=== PATIENT | male | born 1990 | race Caucasian/White ===

== ENCOUNTER 2017-11-16 18:28 | Emergency (ER) | payer OTHER ==
[~2017-11-16] VITALS: Ht 170.2 cm; Wt 104.3 kg
[2017-11-16 18:33] VITALS: BP 137/72
--- NOTE | 2017-11-16 18:40 | NUR ---
PT BIB FRIEND. ABLE TO AMBULATE TO BED. FELL THIS AFTERNOON AROUND 1700 ON HIS RIGHT WRIST. UNABLE TO WINGGLE FINGERS OR MOVE HIS WRIST FROM RIGHT TO LEFT. 9/10 PAIN. HIS WRIST IS RED AND SWALLOW. PT IS A CLEAR HISTORIAN OF STORY. PT'S FRIEND IS WAITING IN Epuls. PT IS ALSO WORRIED ABOUT HURTING HIS HERNIA.
--- NOTE | 2017-11-16 18:41 | NUR ---
PT AMBULATES TO BED 6
[2017-11-16] MEDS ORDERED: KETOROLAC 60 MG/2 ML VIAL IM ONE (18:50)
[2017-11-16] MEDS ORDERED: HYDROcodone/APAP 5/325 MG 1 TAB TAB PO ONE (18:50)
--- NOTE | 2017-11-16 19:07 | NUR ---
X-Ray at bedside.
--- NOTE | 2017-11-16 19:08 | NUR ---
J[facility]E [facility]ES FOR CARE
[2017-11-16 19:50] VITALS: BP 129/75
--- NOTE | 2017-11-16 19:50 | NUR ---
Patient discharged with v/s stable. Written and verbal after care instructions given and explained. Patient alert, oriented and verbalized understanding of instructions. Ambulatory with steady gait. All questions addressed prior to discharge. ID band removed. Patient advised to follow up with PMD. Rx of VOLTAREN 100MG given. Patient educated on indication of medication including possible reaction and side effects. Opportunity to ask questions provided and answered.
== END 2017-11-16 19:50 | disposition home or self-care (01) ==
LOC: MED 18:28
DX: S63.501A Unspecified sprain of right wrist, initial encounter (principal); I10 Essential (primary) hypertension; Z87.442 Personal history of urinary calculi; W19.XXXA Unspecified fall, initial encounter; Y93.89 Activity, other specified; Y92.89 Other specified places as the place of occurrence of the external cause; Y99.8 Other external cause status
CPT/HCPCS: 29125; 73110; 96372; 99284; J1885; Q0092